=== PATIENT | male | born 1935 | race Caucasian/White ===

== ENCOUNTER 2016-09-30 09:09 | Emergency (ER) | payer MEDICARE ==
[~2016-09-30] VITALS: Ht 172.7 cm; Wt 78.0 kg
[~2016-09-30 09:09] MED LIST: CHOL400T36 PO; DAILY MULTIVIT1 EAC1 PO; DIGO250T6 PO; DLT240CCR PO; LOSA100T8 PO; METF500T4 PO; OMEG1CAP58 PO; ROSU10TA PO; TIOT18CA IH; WRF2T PO
--- OUTSIDE RECORDS SUMMARY | 2016-09-30 09:14 | XMS REPORT | Continuity of Care Document ---
Author Author [facility] Address Unknown Phone Unavailable Allergies Active Description Code Type Severity Reaction Onset Reported/Identified Relationship to Patient Clinical Status Yes No Known Drug Allergies [id number] Drug Allergy Unknown N/ A 03/10/2014 Medications Problems Date Dx Coded Attending Type Code Diagnosis Diagnosed By 03/12/2014 ERLIN DALEY, HELENA Greene Ot 173.30 03/12/2014 ERLIN DALEY, HELENA Greene Ot 211.3 03/12/2014 ERLIN DALEY, HELENA Greene Ot 250.00 03/12/2014 HELENA KERN MD Ot 401.9 03/12/2014 ERLIN DALEY, HELENA Greene Ot 427.31 03/12/2014 ERLIN DALEY, HELENA Greene Ot 455.3 03/12/2014 ERLIN DALEY, HELENA Greene Ot 496 03/12/2014 HELENA KERN MD Ot V58.61 04/24/2014 Porter DALEY, Surinder Law Ot 427.31 04/24/2014 Porter DALEY, Surinder Law Ot 427.31 05/07/2014 Porter DALEY, Surinder Law Ot 427.31 05/09/2014 Surinder Buenrostro MD Ot 427.31 06/11/2014 Porter DALEY, Surinder Law Ot 427.31 10/30/2014 Boris DALEY, Jose Carlos Walter Ot 788.43 Procedures Results Encounters ACCT No. Visit Date/Time Discharge Status Pt. Type Provider Facility Loc./Unit Complaint [id number] 10/07/2014 13:33:00 2014 23:59:59 CLS Outpatient Boris DALEY, Jose Carlos Walter [facility] LAB [id number] 06/12/2014 13:34:00 2014 23:59:59 CLS Preadmit Porter DALEY, [facility] [id number] 03/19/2014 12:54:00 2014 00:01:00 [id number]/12/2014 06:11:00 2013 09:08:00 DIS Outpatient ERLIN DALEY, [facility] [id number] 03/11/2014 09:36:00 2013 23:59:59 CLS Outpatient Porter DALEY, [facility] [id number] 03/10/2014 10:29:00 2013 23:59:59 CLS Outpatient Porter DALEY, [facility] [id number] 12/12/2013 07:58:00 2013 23:59:59 CLS Outpatient [id number] 09/06/2013 07:44:00 2013 23:59:59 CLS Outpatient [id number] 03/14/2013 09:46:00 2012 23:59:59 CLS Outpatient
--- OUTSIDE RECORDS SUMMARY | 2016-09-30 09:15 | XMS REPORT | Continuity of Care Document ---
Author Author [facility] Address Unknown Phone Unavailable Allergies Active Description Code Type Severity Reaction Onset Reported/Identified Relationship to Patient Clinical Status Yes No Known Drug Allergies [id number] Drug Allergy Unknown N/ A 03/10/2014 Medications [...] Status Pt. Type Provider Facility Loc./Unit Complaint [id number] 10/07/2014 13:33:00 2014 23:59:59 CLS Outpatient Boris DALEY, Jose Carlos Walter [facility] LAB [id number] 06/12/2014 13:34:00 2014 23:59:59 CLS Preadmit Porter DALEY, [facility] [id number] 03/19/2014 12:54:00 2014 00:01:00 [id number]/12/2014 06:11:00 2013 09:08:00 DIS Outpatient ERLIN DALEY, [facility] [id number] 03/11/2014 09:36:00 2013 23:59:59 CLS Outpatient Porter DALEY, [facility] [id number] 03/10/2014 10:29:00 2013 23:59:59 CLS Outpatient Porter DALEY, [facility] [id number] 12/12/2013 07:58:00 2013 23:59:59 CLS Outpatient [id number] 09/06/2013 07:44:00 2013 23:59:59 CLS Outpatient [id number] 03/14/2013 09:46:00 2012 23:59:59 CLS Outpatient
[2016-09-30] MEDS ORDERED: WARF5TAB6 PO (09:39)
[2016-09-30] MEDS ORDERED: DILT180C81 PO (09:39)
[2016-09-30] MEDS ORDERED: INDA1.25 PO (09:39)
--- NOTE | 2016-09-30 10:05 | NUR ---
PT CLARIFIES THAT SHE HAS INDEED BEEN PUTING POLYSPORIN ON PTS WOUND INSTEAD OF NEOSPORIN PER DR DUCKWORTH INSTRUCTIONS. CL
[2016-09-30 10:21] VITALS: BP 163/67
== END 2016-09-30 10:20 | disposition home or self-care (01) ==
LOC: ED 09:11
DX: S80.212A Abrasion, left knee, initial encounter (principal); S80.211A Abrasion, right knee, initial encounter; S80.02XA Contusion of left knee, initial encounter; S80.01XA Contusion of right knee, initial encounter; W17.2XXA Fall into hole, initial encounter; Y93.01 Activity, walking, marching and hiking; Y92.009 Unspecified place in unspecified non-institutional (private) residence as the place of occurrence of the external cause; Z79.01 Long term (current) use of anticoagulants
CPT/HCPCS: 36415; 85610; 99282; 99283